=== PATIENT | male | born 1950 | race Caucasian/White ===

== ENCOUNTER 2018-10-23 09:18 | Emergency (ER) | payer MEDICARE, OTHER ==
[2018-10-23] MEDS ORDERED: Sodium Chloride 0.9% 2.5 ML Syringe FLUSH PRN (09:41)
[2018-10-23] MEDS ORDERED: Sodium Chloride 0.9% 10 ML Syringe FLUSH PRN (09:41)
[2018-10-23] MEDS ORDERED: Midazolam 1 MG/ML 2 ML SDV ONE (10:00)
[2018-10-23] MEDS ORDERED: Propofol 200 MG/20 ML SDV ONE (10:01)
[2018-10-23] MEDS ORDERED: fentaNYL 100 MCG/2 ML SDV ONE (10:01)
[2018-10-23 10:06] VITALS: BP 143/57
[2018-10-23] MEDS ORDERED: Sodium Chloride 0.9% 1,000 ML IV ONE (10:08)
--- NOTE | 2018-10-23 10:18 | EDM.PDOC ---
ED HPI GENERAL MEDICAL PROBLEM - General Chief Complaint: Lower Extremity Injury/Pain Stated Complaint: LEFT HIP PAIN Time Seen by Provider: 10/23/18 09:40 - History of Present Illness INITIAL COMMENTS - FREE TEXT/NARRATIVE: HISTORY AND PHYSICAL: History of present illness: Patient 68-year-old male presents with concern of hip dislocation is a prosthetic left hip and has had this happen multiple times prior this is related to normal position getting out of the car he denies direct trauma or fall denies any other concern. Review of systems: As per history of present illness and below otherwise all systems reviewed and negative. Past medical history: As per history of present illness and as reviewed below otherwise noncontributory. Surgical history: As per history of present illness and as reviewed below otherwise noncontributory. Social history: No reported history of drug or alcohol abuse. Family history: As per history of present illness and as reviewed below otherwise noncontributory. Physical exam: HEENT: Atraumatic, normocephalic, pupils reactive, negative for conjunctival pallor or scleral icterus, mucous membranes moist, throat clear, neck supple, nontender, trachea midline. Lungs: Clear to auscultation, breath sounds equal bilaterally, chest nontender. Heart: S1S2, regular, negative for clicks, rubs, or JVD. Abdomen: Soft, nondistended, nontender. Negative for masses or hepatosplenomegaly. Negative for costovertebral tenderness. Pelvis: Stable left hip flexed slightly internally rotated neurovascular exam unremarkable obvious subluxation clinically Genitourinary: Deferred. Rectal: Deferred. Extremities: Atraumatic, negative for cords or calf pain. Neurovascular unremarkable. Neuro: Awake, alert, oriented. Cranial nerves II through XII unremarkable. Cerebellum unremarkable. Motor and sensory unremarkable throughout. Exam nonfocal. Diagnostics: X-ray left hip , post reduction x-ray Therapeutics: Patient underwent monitored anesthesia care with conscious sedation and had his hip reduced with traction countertraction flexion successful reduction with normal neurovascular exam status post x-ray pending Impression: #1 left hip dislocation status post reduction Definitive disposition and diagnosis as appropriate pending reevaluation and review of above. Left Hip Pain Score (Numeric/FACES): 3 - Related Data Allergies Allergy/AdvReac Type Severity Reaction Status Date / Time No Known Allergies Allergy Verified 10/23/18 09:25 Home Meds: Home Meds Lisinopril 10 mg PO DAILY 12/15/14 [History] Simvastatin [Zocor] 45 mg PO DAILY 12/15/14 [History] hydroCHLOROthiazide [Hydrochlorothiazide] 25 mg PO DAILY 12/15/14 [History] Past Medical History HEENT History: Reports: Impaired Vision Cardiovascular History: Reports: High Cholesterol, Hypertension Respiratory History: Reports: Sleep Apnea Gastrointestinal History: Reports: None Genitourinary History: Reports: None Musculoskeletal History: Reports: Other (See Below) Other Musculoskeletal History: 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 Neurological History: Reports: None Psychiatric History: Reports: None Endocrine/Metabolic History: Reports: None Hematologic History: Reports: None Immunologic History: Reports: None Oncologic (Cancer) History: Reports: None Dermatologic History: Reports: None - Infectious Disease History Infectious Disease History: Reports: None - Past Surgical History Musculoskeletal Surgical History: Reports: Hip Replacement Social & Family History - Family History Family Medical History: Noncontributory - Tobacco Use Smoking Status *Q: Never Smoker - Caffeine Use Caffeine Use: Reports: Coffee - Alcohol Use Days Per Week of Alcohol Use: 2 Number of Drinks Per Day: 2 Total Drinks Per Week: 4 - Recreational Drug Use Recreational Drug Use: No - Living Situation & Occupation Living situation: Reports: Occupation: Employed Review of Systems - Review of Systems Review Of Systems: ROS reveals no pertinent complaints other than HPI. ED EXAM, GENERAL - Physical Exam Exam: See Below (See dictation) Course - Vital Signs Last Recorded V/S: Last Vital Signs Temp 36.6 C 10/23/18 09:28 Pulse 82 10/23/18 09:28 Resp 16 10/23/18 09:28 BP 143/57 H 10/23/18 09:28 Pulse Ox 94 L 10/23/18 09:28 - Orders/Labs/Meds Orders: Active Orders 24 hr Category Date Time Status Hip Min 2V or 3V w Pelvis Lt [CR] Stat Exams 10/23/18 09:40 Taken Sodium Chloride 0.9% [Saline Flush] Med 10/23/18 09:41 Active 10 ml FLUSH ASDIRECTED PRN Sodium Chloride 0.9% [Saline Flush] Med 10/23/18 09:41 Active 2.5 ml FLUSH ASDIRECTED PRN Saline Lock Insert [OM.PC] Stat Oth 10/23/18 09:41 Ordered Medication Orders Sodium Chloride (Saline Flush) 10 ml FLUSH ASDIRECTED PRN PRN Reason: Keep Vein Open Sodium Chloride (Saline Flush) 2.5 ml FLUSH ASDIRECTED PRN PRN Reason: Keep Vein Open Meds: Medications Generic Name Dose Route Start Last Admin Trade Name Freq PRN Reason Stop Dose Admin Sodium Chloride 10 ml 10/23/18 09:41 Saline Flush FLUSH ASDIRECTED PRN Keep Vein Open Sodium Chloride 2.5 ml 10/23/18 09:41 Saline Flush FLUSH ASDIRECTED PRN Keep Vein Open Discontinued Medications Generic Name Dose Route Start Last Admin Trade Name Freq PRN Reason Stop Dose Admin Fentanyl Confirm 10/23/18 10:01 Sublimaze Administered 10/23/18 10:02 Dose 100 mcg .ROUTE .STK-MED ONE Midazolam HCl Confirm 10/23/18 10:00 Versed 1 Mg/Ml Administered 10/23/18 10:01 Dose 2 mg .ROUTE .STK-MED ONE Propofol Confirm 10/23/18 10:01 Diprivan 20 Ml Administered 10/23/18 10:02 Dose 200 mg .ROUTE .STK-MED ONE Departure - Departure Time of Disposition: 10:17 Disposition: Home, Self-Care 01 Condition: Good Clinical Impression: Hip dislocation, left - Discharge Information Referrals: PCP,None [Primary Care Provider] - Additional Instructions: The following information is given to patients seen in the emergency department who are being discharged to home. This information is to outline your options for follow-up care. We provide all patients seen in our emergency department with a follow-up referral. The need for follow-up, as well as the timing and circumstances, are variable depending upon the specifics of your emergency department visit. If you don't have a primary care physician on staff, we will provide you with a referral. We always advise you to contact your personal physician following an emergency department visit to inform them of the circumstance of the visit and for follow-up with them and/or the need for any referrals to a consulting specialist. The emergency department will also refer you to a specialist when appropriate. This referral assures that you have the opportunity for followup care with a specialist. All of these measure are taken in an effort to provide you with optimal care, which includes your followup. Under all circumstances we always encourage you to contact your private physician who remains a resource for coordinating your care. When calling for followup care, please make the office aware that this follow-up is from your recent emergency room visit. If for any reason you are refused follow-up, please contact the [facility] emergency department at and asked to speak to the emergency department charge nurse. Activity as tolerated follow-up orthopedic surgery and primary medical doctor as needed as discussed and return as needed as discussed - My Orders Last 24 Hours: My Active Orders 10/23/18 09:40 Hip Min 2V or 3V w Pelvis Lt [CR] Stat 10/23/18 09:41 Sodium Chloride 0.9% [Saline Flush] 10 ml FLUSH ASDIRECTED PRN Sodium Chloride 0.9% [Saline Flush] 2.5 ml FLUSH ASDIRECTED PRN Saline Lock Insert [OM.PC] Stat - Assessment/Plan Last 24 Hours: My Active Orders 10/23/18 09:40 Hip Min 2V or 3V w Pelvis Lt [CR] Stat 10/23/18 09:41 Sodium Chloride 0.9% [Saline Flush] 10 ml FLUSH ASDIRECTED PRN Sodium Chloride 0.9% [Saline Flush] 2.5 ml FLUSH ASDIRECTED PRN Saline Lock Insert [OM.PC] Stat
--- NOTE | 2018-10-23 10:24 | PCM.PREANE ---
Preanesthetic Assessment - Anesthesia/Transfusion/Family Hx Anesthesia History: Prior Anesthesia Without Reaction Family History of Anesthesia Reaction: No Transfusion History: No Prior Transfusion(s) Intubation History: Unknown - Review of Systems General: No Symptoms Pulmonary: No Symptoms Cardiovascular: No Symptoms Gastrointestinal: No Symptoms Neurological: No Symptoms Other: Reports: None - Physical Assessment NPO Status Date: 10/23/18 NPO Status Time: 07:00 O2 Sat by Pulse Oximetry: 94 Respiratory Rate: 16 Vital Signs: Last Vital Signs Temp 97.9 F 10/23/18 09:28 Pulse 82 10/23/18 09:28 Resp 16 10/23/18 09:28 BP 143/57 H 10/23/18 09:28 Pulse Ox 94 L 10/23/18 09:28 Height: 5 ft 11 in Weight: 108.862 kg ASA Class: 2E Mental Status: Alert & Oriented x3 Airway Class: Mallampati = 2 Dentition: Reports: Normal Dentition Thyro-Mental Finger Breadths: 3 Mouth Opening Finger Breadths: 3 ROM/Head Extension: Full Lungs: Clear to Auscultation, Normal Respiratory Effort Cardiovascular: Regular Rate, Regular Rhythm - Allergies Allergies/Adverse Reactions: Allergies Allergy/AdvReac Type Severity Reaction Status Date / Time No Known Allergies Allergy Verified 10/23/18 09:25 - Acknowledgements Anesthesia Type Planned: MAC Pt an Appropriate Candidate for the Planned Anesthesia: Yes Alternatives and Risks of Anesthesia Discussed w Pt/Guardian: Yes Pt/Guardian Understands and Agrees with Anesthesia Plan: Yes PreAnesthesia Questionnaire HEENT History: Reports: Impaired Vision Cardiovascular History: Reports: High Cholesterol, Hypertension, [place] (Small heart attack in the past. 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 Neurological History: Reports: None Psychiatric History: Reports: None Endocrine/Metabolic History: Reports: Obesity/BMI 30+ Hematologic History: Reports: None Immunologic History: Reports: None Oncologic (Cancer) History: Reports: None Dermatologic History: Reports: None - Infectious Disease History Infectious Disease History: Reports: None - Past Surgical History Musculoskeletal Surgical History: Reports: Hip Replacement - SUBSTANCE USE Smoking Status *Q: Never Smoker Days Per Week of Alcohol Use: 2 Number of Drinks Per Day: 2 Total Drinks Per Week: 4 Recreational Drug Use History: No - HOME MEDS Home Medications: Home Meds Lisinopril 10 mg PO DAILY 12/15/14 [History] Simvastatin [Zocor] 45 mg PO DAILY 12/15/14 [History] hydroCHLOROthiazide [Hydrochlorothiazide] 25 mg PO DAILY 12/15/14 [History] - CURRENT (IN HOUSE) MEDS Current Meds: Current Medications Sodium Chloride (Saline Flush) 10 ml FLUSH ASDIRECTED PRN PRN Reason: Keep Vein Open Sodium Chloride (Saline Flush) 2.5 ml FLUSH ASDIRECTED PRN PRN Reason: Keep Vein Open Discontinued Medications Fentanyl (Sublimaze) Confirm Administered Dose 100 mcg .ROUTE .STK-MED ONE Stop: 10/23/18 10:02 Midazolam HCl (Versed 1 Mg/Ml) Confirm Administered Dose 2 mg .ROUTE .STK-MED ONE Stop: 10/23/18 10:01 Propofol (Diprivan 20 Ml) Confirm Administered Dose 200 mg .ROUTE .STK-MED ONE Stop: 10/23/18 10:02
--- NOTE | 2018-10-23 10:29 | CR ---
HISTORY: Left hip pain. FINDINGS: Two AP views of the pelvis and left hip are provided. There are no previous studies for comparison. There is a left total hip prosthesis noted in place. The neck portion of the femoral prosthesis does not appear centered on the acetabular component. This may represent anterior or posterior dislocation of the total hip replacement. No lateral view is provided for confirmation. No fracture is noted. 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 Postoperative changes of the lower lumbar spine are noted. IMPRESSION: Question of possible dislocated left total hip replacement. Lateral view would be helpful for further assessment. There are no previous studies for comparison. Dictated by Prudencio Hu MD @ Oct 23 2018 10:25AM Signed by Dr. Prudencio Hu @ Oct 23 2018 10:28AM
--- NOTE | 2018-10-23 10:33 | PCM.POSTAN ---
POST ANESTHESIA ASSESSMENT - MENTAL STATUS Mental Status: Alert, Oriented - RESPIRATORY Respiratory Status: Respiratory Rate WNL, Airway Patent, O2 Saturation Stable - CARDIOVASCULAR CV Status: Pulse Rate WNL, Blood Pressure Stable - GASTROINTESTINAL GI Status: No Symptoms - POST OP HYDRATION Hydration Status: Adequate & Stable
--- NOTE | 2018-10-23 10:34 | PCM48HPAN ---
Post Anesthesia Note - EVALUATION WITHIN 48HRS OF ANESTHETIC Vital Signs in Normal Range: Yes Patient Participated in Evaluation: Yes Respiratory Function Stable: Yes Airway Patent: Yes Cardiovascular Function Stable: Yes Hydration Status Stable: Yes Pain Control Satisfactory: Yes Nausea and Vomiting Control Satisfactory: Yes Mental Status Recovered: Yes Resp Rate: 16 - COMMENTS/OBSERVATIONS Free Text/Narrative:: Instructed patient to be sure and wear his CPAP machine at night and during naps for the next week. Pt voices understanding. Nursing will be sure to inform his as well.
--- NOTE | 2018-10-23 10:53 | CR ---
HISTORY: Left hip dislocation. FINDINGS: AP and frog-leg views are provided. These images reveal normal alignment of the femoral and acetabular components without evidence for dislocation. No findings for fracture. Dictated by Prudencio Hu MD @ Oct 23 2018 10:50AM Signed by Dr. Prudencio Hu @ Oct 23 2018 10:52AM
== END 2018-10-23 11:00 | disposition home or self-care (01) ==
LOC: MW.ED 09:18
DX: T84.021A Dislocation of internal left hip prosthesis, initial encounter (principal); I10 Essential (primary) hypertension; E78.00 Pure hypercholesterolemia, unspecified; Z79.899 Other long term (current) drug therapy
CPT/HCPCS: 27265; 73502; 96360; 99152; 99153; 99283; J7040